=== PATIENT | female | born 1980 | race Caucasian/White ===

== ENCOUNTER 2019-10-11 05:05 | Emergency (ER) | payer BC ==
[~2019-10-11] VITALS: Ht 157.5 cm; Wt 95.0 kg
[2019-10-11 07:13] LABS: BASOPHILS % 0.5 % (0.0-2.0); EOSINOPHILS % 0.8 % (0.0-5.0); HEMATOCRIT. 40.2 % (36.0-48.0); HEMOGLOBIN. 12.9 g/dL (12.0-16.0); LYMPHOCYTES % 13.8 % (20.0-50.0); MEAN CORPUSCULAR HEMOGLOBIN 25.7 pg (28.0-32.0); MEAN CORPUSCULAR VOLUME 80.1 fL (81.0-99.0); MEAN PLATELET VOLUME 9.1 fl (7.4-10.4); MONOCYTES % 5.5 % (2.0-8.0); NEUTROPHILS % 79.4 % (40.0-76.0); PLATELET 296 x1000/uL (130-400); RED BLOOD CELL COUNT 5.01 mill/uL (4.2-5.4); RED CELL DISTRIBUTION WIDTH 14.3 % (11.6-14.6)
[2019-10-11 07:17] LABS: CHLORIDE 109 mEq/L (98-107)
[2019-10-11 07:17] LABS: CLARITY URINE CLEAR (CLEAR); COLOR URINE YELLOW (YELLOW); KETONES URINE NEGATIVE (NEGATIVE); LEUKOCYTE ESTERASE URINE NEGATIVE (NEGATIVE); NITRITE URINE NEGATIVE (NEGATIVE); OCCULT BLOOD URINE NEGATIVE (NEGATIVE); PROTEIN URINE NEGATIVE (NEGATIVE); SPECIFIC GRAVITY URINE 1.022 (1.005-1.030); UROBILINOGEN URINE 0.2 E.U./dL (0.2-1.0)
[2019-10-11 07:45] LABS: PROTHROMBIN TIME 10.2 sec (9.6-11.0)
[2019-10-11 10:59] VITALS: BP 123/70
== END 2019-10-11 11:20 | disposition home or self-care (01) ==
LOC: ER 05:05
DX: K80.20 Calculus of gallbladder without cholecystitis without obstruction (principal)
CPT/HCPCS: 36415; 76705; 80053; 81003; 81025; 85025; 99284